=== PATIENT | male | born 1980 | race Caucasian/White ===

== ENCOUNTER 2017-04-01 12:05 | Emergency (ER) | payer BC ==
[~2017-04-01] VITALS: Ht 185.4 cm; Wt 101.5 kg
[2017-04-01 12:06] VITALS: Ht 185.4 cm; Wt 101.5 kg
[2017-04-01 14:47] LABS: URINE BLOOD (Dip) POC Negative (NEGATIVE)
--- NOTE | 2017-04-01 14:48 | RADRPT ---
PROCEDURE: XR Lumbar Spine. CLINICAL INDICATION: Lumbar spine pain. TECHNIQUE: AP, lateral, and cone-down lateral view of the lumbar spine were obtained. COMPARISON: No prior studies are available for comparison. FINDINGS: The alignment of the lumbar spine is within normal limits. The vertebral body heights and marrow de nsity are normal in appearance. There is preservation of the intervertebral disc spaces. There is no significant facet spondylosis. The neural foramina appear patent. The paraspinal soft tissues u nremarkable. The posterior elements are unremarkable. IMPRESSION: 1. Normal radiographs of the lumbar spine. 2. No evidence of fracture or significant degenerative disc disease. RPTAT: HGAS .Mumtaz Perez MD, MD Date Time Electronically viewed and signed by .Mumtaz Perez MD, on 04/01/2017 14:48 .S/
[2017-04-01] MEDS ORDERED: IBUP-1542 PO (14:58)
[2017-04-01] MEDS ORDERED: ORPH100T PO (14:59)
--- NOTE | 2017-04-01 15:05 | ERD ---
ER Documentation Chief Complaint Chief Complaint back pain x 15 days, no injury HPI This is a 37-year-old male presents to the ER with lower back pain for the last 15 days. Patient states that pain is worse whenever he tries to get up from the bed or from a chair. Pain is throbbing in quality is intermittent. It is nonradiating. Tried taking Tylenol however did not work. He denies any urinary bowel incontinence he denies any saddle like anesthesia. Patient denies IV drug use. He has not had any fevers or chills. He denies any back trauma ROS 12 point review of systems was done, all negative except per HPI. Medications Home Meds Active Scripts Orphenadrine Citrate (Norflex) 100 Mg Tablet.sa, 100 MG PO BID for 7 Days, TAB.SA Prov:SULEMAN HARRINGTON C 04/01/17 Ibuprofen* (Motrin*) 600 Mg Tab, 600 MG PO Q6, #30 TAB Prov:LENSULEMAN C 04/01/17 Allergies Allergies: Coded Allergies: No Known Allergy (Unverified , 04/01/17) PMhx/Soc Medical and Surgical Hx: pt denies Medical Hx, pt denies Surgical Hx Hx Alcohol Use: Yes Hx Substance Use: No Hx Tobacco Use: No Smoking Status: Never smoker Physical Exam Vitals Vital Signs Date Time Temp Pulse Resp B/P Pulse Ox O2 Delivery O2 Flow Rate FiO2 04/01/17 12:06 97.6 68 18 142/88 98 Physical Exam GENERAL: The patient is well developed and appropriate for usual state of health , in no apparent distress. NECK: C-spine is soft and supple. There is no cervical lymphadenopathy. CHEST: Clear to auscultation bilaterally. There are no rales, wheezes or rhonchi. HEART: Regular rate and rhythm. No murmurs, clicks, rubs or gallops. ABDOMEN: Soft, nontender and nondistended. Good bowel sounds. No rebound or guarding. No gross peritonitis. No gross organomegaly or masses. No Holley sign or McBurney point tenderness. No pulsatile abdominal mass. BACK: No midline or flank tenderness. Tender to palpation from L3-L5. Tense paraspinal muscles. Negative leg raise test. No step- offs. EXTREMITIES: Equal pulses bilaterally. There is no peripheral clubbing, cyanosis or edema. No focal swelling or erythema. Full range of motion. Grossly neurovascularly intact. NEURO: Alert and oriented. Cranial nerves II through XII are intact. Motor strength in all 4 extremities with 5/5 strength. Sensation grossly intact. Normal speech and gait. SKIN: There is no apparent rash or petechia. The skin is warm and dry. Results 24 hrs Laboratory Tests Test 04/01/17 14:49 Bedside Urine pH (LAB) 5.5 Bedside Urine Protein (LAB) Negative Bedside Urine Glucose (UA) Negative Bedside Urine Ketones (LAB) Negative Bedside Urine Blood Negative Bedside Urine Nitrite (LAB) Negative Bedside Urine Leukocyte Esterase (L Negative Procedures/MDM Differential Diagnosis includes but is not limited to back strain, vertebral fracture, epidural abscess, cauda equina, herniated disc, AAA rupture, kidney stones, UTI, pyelonephritis. There is a 37-year-old male presents to the ER with lower back pain for the last 15 days. Patient's physical examination is benign. He does not have history of trauma. He has full and nonpainful range of motion of bilateral extremities and is neurovascularly intact. Suspicion for cauda equina is low. I do not believe patient has epidural abscess or discitis as he is afebrile and well-appearing. He will be sent with ibuprofen and with Norflex. He needs to follow-up with his primary care doctor within 1- 2 days or return to ER sooner if symptoms worsen. My medical decision making shared with the patient he understands and agrees with plan. Departure Diagnosis: Primary Impression: Back pain Condition: Stable Patient Instructions: Back Pain (Acute Or Chronic) Additional Instructions: Llame al doctor SYDNEY y carmina june RANI PARA DENTRO DE 1-2 COATES.Dgale a la secretaria que nosotros le instruimos hacer esta rani.Avise o llame si ackerman condicin se empeora antes de la rani. Regresa aqui si peor o no mejor. SULEMAN HARRINGTON Apr 01, 2017 15:05
== END 2017-04-01 15:10 | disposition home or self-care (01) ==
LOC: FTE 12:05
DX: M54.5 Low back pain (principal)
CPT/HCPCS: 72100; 81003